=== PATIENT | female | born 1955 | race Caucasian/White ===

== ENCOUNTER 2023-06-09 19:18 | Emergency (ER) | payer MEDICARE, OTHER ==
[~2023-06-09] VITALS: Ht 172.7 cm; Wt 74.8 kg
[~2023-06-09 19:18] MED LIST: HYDR-3980 PO
[2023-06-09] MEDS ORDERED: MORPHINE SULFATE 4 MG/1 ML DISP.SYRIN IM ONE (20:30)
[2023-06-09] MEDS ORDERED: MORPHINE SULFATE 4 MG/1 ML DISP.SYRIN ONE (20:59)
[2023-06-09] MEDS ORDERED: NAPR-1164 PO (23:21)
[2023-06-09] MEDS ORDERED: ACET1TAB23 PO (23:21)
[2023-06-09 23:30] VITALS: BP 142/85; TEMP 98; O2SAT 98
== END 2023-06-09 23:30 | disposition home or self-care (01) ==
LOC: ER 19:20
DX: M25.461 Effusion, right knee (principal); I80.01 Phlebitis and thrombophlebitis of superficial vessels of right lower extremity; E78.5 Hyperlipidemia, unspecified; E03.9 Hypothyroidism, unspecified; F17.210 Nicotine dependence, cigarettes, uncomplicated; Z79.899 Other long term (current) drug therapy
CPT/HCPCS: 99285; 93971; 73564; 96372; J2270; A4663